=== PATIENT | female | born 1985 | race Caucasian/White ===

== ENCOUNTER → 2022-10-25 | Emergency (ER) | payer OTHER ==
[~2022-10-25] VITALS: Ht 167.6 cm; Wt 67.1 kg
[2022-10-25 17:49] VITALS: BP_SYST 110
== END | disposition left against medical advice (07) ==
LOC: SED 17:09
DX: S61.251A Open bite of left index finger without damage to nail, initial encounter (principal); Z53.21 Procedure and treatment not carried out due to patient leaving prior to being seen by health care provider; W54.0XXA Bitten by dog, initial encounter; Y93.89 Activity, other specified; Y92.89 Other specified places as the place of occurrence of the external cause; Y99.8 Other external cause status